=== PATIENT | male | born 1970 | race Caucasian/White ===

== ENCOUNTER 2024-12-28 13:22 | Emergency (ER) | payer OTHER ==
[~2024-12-28] VITALS: Ht 165.1 cm; Wt 74.0 kg
[2024-12-28 14:13] LABS: BASO % 0.6 % (0.0-1.0); EOS % 0.3 % (1.0-4.0); HEMATOCRIT 44.9 % (42.0-52.0); MEAN CELL VOLUME 89.6 fl (80.0-94.0); MEAN CORPUSCULAR HGB 30.1 pg (27.0-31.0); MEAN CORPUSCULAR HGB CONC 33.6 g/dl (33.0-37.0); MEAN PLATELET VOLUME 9.7 fl (9.6-12.3); MONO # 0.5 10*3/uL (0.1-1.0); MONO % 7.2 % (3.0-9.0); NEUT # 5.1 10*3/uL (2.3-7.9); PLATELET COUNT AUTOMATED 276 10*3/uL (130-400); RED BLOOD COUNT 5.01 10*6/uL (4.50-5.90); RED CELL DISTRI WIDTH 13.5 % (0-14.5); WHITE BLOOD COUNT 6.8 10*3/uL (4.8-10.8)
[2024-12-28 14:32] LABS: BUN 6 mg/dl (9-23); CHLORIDE 106 mmol/L (98-107); POTASSIUM 3.7 mmol/L (3.4-5.1)
== END 2024-12-28 16:02 | disposition home or self-care (01) ==
LOC: ED 13:22
PROVIDERS: Nurse Practitioner Family
DX: R07.89 Other chest pain (principal); R55 Syncope and collapse; I10 Essential (primary) hypertension; Z88.8 Allergy status to other drugs, medicaments and biological substances